=== PATIENT | female | born 1955 | race Asian ===

== ENCOUNTER 2017-11-28 00:51 | Inpatient (IN) | payer MEDICAID ==
[~2017-11-28] VITALS: Ht 160 cm; Wt 53.5 kg
--- NOTE | 2017-11-28 00:56 | NUR ---
PT TO ER BED 13. BIBRA 78 FOR "CHEST PAIN SINCE YESTERDAY AFTERNOON" +NV. PT STATES ITS A BURNING PAIN IN EPIGASTRIC AREA. PT PLACED IN GOWN AND ON HEARING AID MECHANIC. VSS/RESP EVEN UNLABORED/NAD NOTED/SKIN WARM AND DRY/AFEBRILE/AOX4. AWAITING MD CARNES.
[2017-11-28] MEDS ORDERED: ONDANSETRON HCL/PF 4 MG/2 ML VIAL ONE ×2 (01:10→03:25)
[2017-11-28] MEDS ORDERED: MORPHINE SULFATE INJ 4 MG/ML DISP.SYRIN ONE (01:10)
--- NOTE | 2017-11-28 01:10 | NUR ---
LAB AT BEDSIDE FOR DRAW.
[2017-11-28] MEDS ORDERED: CARB-93 PO (01:27)
[2017-11-28] MEDS ORDERED: [UNRECOGNIZED DRUG - CODE] PO (01:27)
[2017-11-28] MEDS ORDERED: FURO-144 PO (01:27)
[2017-11-28] MEDS ORDERED: DILT180C PO (01:27)
[2017-11-28] MEDS ORDERED: APIX5TAB PO (01:27)
[2017-11-28] MEDS ORDERED: METO50TA16 PO (01:27)
[2017-11-28] MEDS ORDERED: PRAM0.253 PO (01:27)
[2017-11-28 01:29] LABS: BASOPHILS % (AUTO) 0.1 % (0.0-2.0); EOSINOPHILS % (AUTO) 0.4 % (0.0-6.0); HEMATOCRIT 30 % (33-45); HEMOGLOBIN 10.4 g/dL (11.5-14.8); LYMPHOCYTES % (AUTO) 12.2 % (20.0-44.0); MEAN CORPUSCULAR HGB CONC 35 g/dl (31.0-36.0); MEAN CORPUSCULAR VOLUME 81 fL (82-100); MONOCYTES # (AUTO) 0.1 /CMM (0.1-1.30); MONOCYTES % (AUTO) 1.4 % (2.0-12.0); NEUTROPHILS # (AUTO) 6.9 /CMM (1.8-8.9); NEUTROPHILS % (AUTO) 85.9 % (43.0-81.0); PLATELET COUNT (AUTO) 437 /CMM (150-450); RDW COEFFICIENT OF VARIATION 14.4 (11.5-15.0); RED BLOOD CELL COUNT(AUTO) 3.72 MIL/uL (4.0-5.2); WHITE BLOOD COUNT (AUTO) 8.1 K/uL (4.3-11.0)
[2017-11-28] MEDS ORDERED: MORPHINE SULFATE INJ 2 MG/ML DISP.SYRIN IV ONE (01:30)
[2017-11-28] MEDS ORDERED: ONDANSETRON HCL/PF 4 MG/2 ML VIAL IVP ONE (01:30)
[2017-11-28 01:41] LABS: CALCIUM, SERUM 9.7 mg/dL (8.5-10.1); CARBON DIOXIDE 26 mmol/L (21-32); CHLORIDE 101 mmol/L (98-107); CREATININE 1.3 mg/dL (0.6-1.3); GLUCOSE 208 mg/dL (74-106); INR 1.52 (0.87-1.13); POTASSIUM 3.7 mmol/L (3.5-5.1); SODIUM SERUM 140 mmol/L (136-145); UREA NITROGEN, BLOOD 64 mg/dL (7-18)
[2017-11-28 01:55] LABS: ALANINE AMINOTRANSFERASE 9 U/L (12-78); ALBUMIN 3.1 g/dL (3.4-5.0); ALKALINE PHOSPHATASE 90 U/L (46-116); ASPARTATE AMINOTRANSFERASE 14 U/L (15-37); B-TYPE NATRIURETIC PEPTIDE 2933 PG/ML (0-125); BILIRUBIN,DIRECT 0.3 mg/dL (0.0-0.2); BILIRUBIN,TOTAL 0.7 mg/dL (0.2-1.0); TOTAL PROTEIN, SERUM 7.3 g/dL (6.4-8.2)
[2017-11-28] MEDS ORDERED: IOHEXOL-300 100 ML VIAL IV ONE (01:59)
[2017-11-28] MEDS ORDERED: CT SWABBABLE VALVE TRANS SET 1 EA INFUS.SET MC ONE (01:59)
[2017-11-28] MEDS ORDERED: IV NS 0.9% 500 ML IV ONE (01:59)
[2017-11-28] MEDS ORDERED: ASPIRIN 325 MG TABLET PO ONE (02:00)
[2017-11-28] MEDS ORDERED: ASPIRIN 325 MG TABLET ONE (02:00)
--- NOTE | 2017-11-28 02:06 | NUR ---
PT RESTING QUIETLY, VSS. AROUSES EASILY TO VOICE. RN TO CONTINUE MONITORING PROVIDING SAFETY/COMFORT MEASURES.
[2017-11-28 02:38] LABS: TROPONIN I < 0.017 ng/mL (0.00-0.056)
--- NOTE | 2017-11-28 03:15 | NUR ---
REPORT GIVEN TO ANN LEBLANC FOR JANETT.
--- NOTE | 2017-11-28 03:16 | NUR ---
PT TBA TELE 314-2.
[2017-11-28] MEDS ORDERED: ONDANSETRON HCL/PF 4 MG/2 ML VIAL IV ONE (03:30)
--- NOTE | 2017-11-28 03:42 | NUR ---
PT TRANSPORTED TO TELE 314.2 VIA STRETCHER ON MIXER PIGMENT WITH RN PER ACLS PROTOCOL. VSS.
[2017-11-28 04:00] VITALS: BP 166/77
--- NOTE | 2017-11-28 04:00 | NUR ---
LEAD MANUFACTURING TECHNICIAN NOTE RECEIVED PATIENT FROM ER VIA GURJYACE ACCOMPANIED WITH HER EX-, PATIENT IS ALERT AND ORIENTEDX4, NO S/S OF RESPIRATORY DISTRESS, NON-LABORED BREATHING, COMPLAINS OF NAUSEA AND PAIN ON HER EPIGASTRIC AREA. ZOFRAN GIVEN AT ER. IV ON RIGHT AC AND HAND ARE PATENT AND INTACT, SL. TELE SR 88. PATIENT HAS PRESSURE ULCER ON SACRUM, PICTURE TAKEN AND PUT IT IN THE CHART. SRX2, BED IN LOW POSITION, CALL LIGHT WITHIN REACH, WILL CONTINUE TO MONITOR THE PATIENT.
[2017-11-28] MEDS ORDERED: ZOLPIDEM TARTRATE 5 MG TABLET PO PRN (04:30)
[2017-11-28] MEDS ORDERED: DEXTROSE 50%-WATER 50 ML DISP.SYRIN IV PRN (04:30)
[2017-11-28] MEDS ORDERED: NITROGLYCERIN 0.4 MG/TAB BOTTLE SL PRN (04:30)
[2017-11-28] MEDS ORDERED: ACETAMINOPHEN 325 MG TABLET PO PRN (04:30)
[2017-11-28] MEDS ORDERED: ONDANSETRON HCL/PF 4 MG/2 ML VIAL IVP PRN (04:30)
[2017-11-28] MEDS ORDERED: MAGNESIUM HYDROXIDE 30 ML UDC PO PRN (04:30)
[2017-11-28] MEDS ORDERED: HYDROCODONE/APAP 5/325MG 1 EACH TABLET PO PRN (04:30)
[2017-11-28] MEDS: BLOOD SUGAR DIAGNOSTIC 1 EACH STRIP IN SCH ×5 (05:33→21:20)
[2017-11-28] MEDS: METOPROLOL TARTRATE 50 MG TABLET PO SCH ×4 (05:33→23:15)
[2017-11-28] MEDS: INSULIN REGULAR, HUMAN 100 UNIT/ML 3 ML VIAL SQ PRN ×4 (05:37→21:22)
--- NOTE | 2017-11-28 06:40 | NUR ---
PANELBOARD OPERATOR NOTE PATIENT IS RESTING IN BED COMFORTABLY, NO ACUTE DISTRESS NOTED SINCE ADMISSION. NO S/S OF RESPIRATORY DISTRESS OR PAIN REPORTED. WILL ENDORSE TO DAY SHIFT NURSE FOR JANETT.
--- NOTE | 2017-11-28 07:54 | NUR ---
SURGEON/PRESIDENT NOTES Patient awakre and verbally responsive. A&O x3 to self, time and situation. Patient received in bed comfortably with no apparent distress. Safety measures in place. Call light within reach. Will continue to monitor and assess patient.
[2017-11-28] MEDS: CARBIDOPA/LEVODOPA 25/100 MG 1 UDTAB PO SCH ×3 (08:17→16:40)
[2017-11-28] MEDS: PRAMIPEXOLE DI-HCL 0.25 MG TABLET PO SCH ×3 (08:17→16:40)
[2017-11-28] MEDS: DILTIAZEM HCL CD 180 MG PO SCH (08:22)
[2017-11-28] MEDS: FUROSEMIDE 40 MG/4 ML VIAL IV SCH (08:23)
[2017-11-28] MEDS: APIXABAN 5 MG TABLET PO SCH ×2 (08:50→17:00)
[2017-11-28] MEDS ORDERED: ASPIRIN 81 MG TAB.CHEW PO SCH (09:00)
[2017-11-28 09:55] LABS: IRON, SERUM 34 ug/dl (50-175); TOTAL IRON BINDING CAPACITY 204 ug/dl (250-450)
[2017-11-28] MEDS: DRONEDARONE HYDROCHLORIDE 400 MG TABLET PO SCH ×2 (09:56→16:40)
[2017-11-28 10:32] LABS: CHOLESTEROL 129 mg/dL (<200); FERRITIN 1419 ng/mL (8-388); HDL CHOLESTEROL 41 mg/dL (40-60); LDL 74 mg/dL (0-99); TRIGLYCERIDES 132 mg/dL (30-150)
[2017-11-28 11:03] LABS: THYROID STIMULATING HORMONE < 0.007 uIU/mL (0.358-3.74)
[2017-11-28 11:06] LABS: MAGNESIUM 1.7 mg/dL (1.8-2.4); PHOSPHORUS 5.3 mg/dL (2.5-4.9)
[2017-11-28 11:44] VITALS: BP 113/53
[2017-11-28] MEDS: PANTOPRAZOLE 40 MG VIAL IV SCH (14:43)
[2017-11-28] MEDS: Magnesium 1GM/D5W 100ML PREMIX 100 ML IV SCH ×2 (14:47→16:11)
--- NOTE | 2017-11-28 15:54 | NUR ---
PLACE PATIENT ON GLUCERNA PO FOR NUTRITIONAL SUPPLEMENT PER RD MERIAM RECOMMENDATION.
[2017-11-28 16:00] VITALS: BP 121/70
[2017-11-28] MEDS: MORPHINE SULFATE INJ 4 MG/ML DISP.SYRIN IV PRN (16:55)
--- NOTE | 2017-11-28 17:10 | NUR ---
EGD tomorrow, per Dr. Cristian BELLAIS. Charge Nurse is aware. Will endorse to oncoming RN
--- NOTE | 2017-11-28 17:31 | NUR ---
TROP 0.054 PATIENT C/O CRUSHING PAIN IN HER MID LOWER CHEST, MORPHINE 2MG IV PRN GIVEN, NOTIFIED DR. BARRAZA WITH CURRENT TROP RESULT WITH NO NEW ORDERS AT THIS TIME.
[2017-11-28] MEDS: Z GUARD REMEDY 2 OZ OINT TP PRN (18:24)
--- NOTE | 2017-11-28 18:50 | NUR ---
MID WIFE CLOSING NOTES Patient is asleep and comfortable, arouses easily. IV Site on Right AC 18g and Right Hand 22g: Patent and intact. No signs of infiltration noted. Magnesium supplement given today. No complaints of pain or no apparent distress noted. Olga HELD per Dr. Foster for EGD prep. NPO by midnight for EGD preparation. Patient consented procedure - EGD. Consent forms placed in chart. No SOB noted or reported. Safety measures in place. Call light within reach. Will endorse to oncoming nurse
[2017-11-28] MEDS: GLUCERNA SHAKE 237 ML CAN PO SCH (19:16)
--- NOTE | 2017-11-28 19:16 | NUR ---
Glucerna not administered. Dietary informed x3. Endorsed to night RN
--- NOTE | 2017-11-28 19:30 | NUR ---
HOUSING MANAGEMENT OFFICER OPENING NOTES: RECEIVED PT IN BED AND IS ASLEEP AT THIS TIME. FAMILY MEMBER AT BEDSIDE. PT ON ROOM AIR AND TOLERATING WELL. CALL LIGHT WITHIN PT'S REACH. BED KEPT IN LOW, LOCKED POSITION, AND SIDE RAILS X 2UP. PT HAS IV ON R AC AND R HAND IS PATENT AND INTACT. WILL CONTINUE TO MONITOR PT.
[2017-11-28 19:49] VITALS: BP 129/61
[2017-11-28 23:52] VITALS: BP 129/64
[2017-11-29 04:00] VITALS: BP 129/61
--- NOTE | 2017-11-29 04:37 | NUR ---
VISUALIZATION DEVELOPER NOTES: AT BEDSIDE AND CAME TO DROP OFF CELLPHONE.
[2017-11-29 04:41] VITALS: BP 129/61
[2017-11-29] MEDS: METOPROLOL TARTRATE 50 MG TABLET PO SCH ×4 (05:01→23:01)
--- NOTE | 2017-11-29 05:02 | NUR ---
CONFIGURATION MANAGEMENT SPECIALIST NOTES: LOPRESSOR 50MG WAS HELD D/T BEING NPO SINCE MIDNIGHT PT IS TO GO FOR EGD PROCEDURE TODAY.
[2017-11-29] MEDS: BLOOD SUGAR DIAGNOSTIC 1 EACH STRIP IN SCH ×4 (06:07→21:00)
[2017-11-29] MEDS: INSULIN REGULAR, HUMAN 100 UNIT/ML 3 ML VIAL SQ PRN ×4 (06:15→21:06)
--- NOTE | 2017-11-29 06:15 | NUR ---
POKER DEALER CLOSING NOTES: ALL NEEDS WERE ATTENDED AND ANTICIPATED FOR. PT ON ROOM AIR AND TOLERATING WELL. PT RESTING IN BED COMFORTABLY AT THIS TIME. PT HAS BEEN NPO SINCE MIDNIGHT. PT ON TELE BOX AND READING SHOWS SR 60S. PT HAS IV ON R AC #22G AND IS PATENT AND INTACT. PT ALSO HAS IV ON R HAND #18G AND IS PATENT AND INTACT. BOTH H/L AT THE MOMENT. BLOOD SUGAR THIS AM WAS 82. NO INSULIN WAS ADMINISTERED. CALL LIGHT WITHIN PT'S REACH. BED KEPT IN LOW, LOCKED POSITION, AND SIDE RAILS X 2UP. WILL ENDORSE TO AM NURSE FOR JANETT.
[2017-11-29 07:03] LABS: BASOPHILS % (AUTO) 0.3 % (0.0-2.0); HEMATOCRIT 30 % (33-45); HEMOGLOBIN 9.9 g/dL (11.5-14.8); LYMPHOCYTES # (AUTO) 1.4 /CMM (0.8-4.8); LYMPHOCYTES % (AUTO) 18.2 % (20.0-44.0); MEAN CORPUSCULAR HGB CONC 33 g/dl (31.0-36.0); MEAN CORPUSCULAR VOLUME 83 fL (82-100); MONOCYTES # (AUTO) 0.7 /CMM (0.1-1.30); MONOCYTES % (AUTO) 8.7 % (2.0-12.0); NEUTROPHILS # (AUTO) 5.5 /CMM (1.8-8.9); NEUTROPHILS % (AUTO) 71.8 % (43.0-81.0); PLATELET COUNT (AUTO) 391 /CMM (150-450); RDW COEFFICIENT OF VARIATION 14.8 (11.5-15.0); RED BLOOD CELL COUNT(AUTO) 3.64 MIL/uL (4.0-5.2); WHITE BLOOD COUNT (AUTO) 7.6 K/uL (4.3-11.0)
[2017-11-29 07:21] LABS: ALANINE AMINOTRANSFERASE 6 U/L (12-78); ALBUMIN 2.9 g/dL (3.4-5.0); ALKALINE PHOSPHATASE 82 U/L (46-116); ASPARTATE AMINOTRANSFERASE 22 U/L (15-37); BILIRUBIN,TOTAL 0.8 mg/dL (0.2-1.0); CALCIUM, SERUM 9.1 mg/dL (8.5-10.1); CARBON DIOXIDE 24 mmol/L (21-32); CHLORIDE 103 mmol/L (98-107); CREATININE 1.1 mg/dL (0.6-1.3); GLUCOSE 97 mg/dL (74-106); MAGNESIUM 2.7 mg/dL (1.8-2.4); PHOSPHORUS 3.8 mg/dL (2.5-4.9); POTASSIUM 3.5 mmol/L (3.5-5.1); SODIUM SERUM 139 mmol/L (136-145); TOTAL PROTEIN, SERUM 6.9 g/dL (6.4-8.2); UREA NITROGEN, BLOOD 48 mg/dL (7-18)
--- NOTE | 2017-11-29 07:30 | NUR ---
SYSTEMS TECHNICIAN NOTES PATIENT IS A/O X3, FORGETFUL. PATIENT IS CURRENTLY NPO, FOR EGD TODAY. IVC IN RIGHT AC G22, ANOTHER IVC IN RIGHT HAND G18, BOTH PATENT AND INTACT, FLUSHES WELL. DENIES PAIN, SAFETY MEASURES IN PLACE, CALL LIGHT WITHIN REACH. WILL CONT TO MONITOR.
[2017-11-29 07:40] LABS: TROPONIN I < 0.017 ng/mL (0.00-0.056)
[2017-11-29 08:00] VITALS: BP 122/58
--- NOTE | 2017-11-29 08:27 | NUR ---
PATIENT IS TAKEN TO OR VIA BED FOR PROCEDURE-EGD.
[2017-11-29] MEDS: DILTIAZEM HCL CD 180 MG PO SCH (09:00)
[2017-11-29] MEDS: DRONEDARONE HYDROCHLORIDE 400 MG TABLET PO SCH ×2 (09:00→17:09)
[2017-11-29] MEDS: APIXABAN 5 MG TABLET PO SCH ×2 (09:00→17:07)
[2017-11-29] MEDS: GLUCERNA SHAKE 237 ML CAN PO SCH ×3 (09:15→17:00)
--- NOTE | 2017-11-29 10:04 | NUR ---
PATIENT IS BACK TO THE UNIT, AWAKE, A/O X3. ADVANCED DIET TOLERATED AND RESUME MEDS AND OTHER ORDERS PER DR. CARBAJAL NOTED AND ACKNOWLEDGED. WILL CONT TO MONITOR PATIENT.
--- NOTE | 2017-11-29 10:14 | NUR ---
WOUND CARE CONSULT: PT PRESENTS WITH STAGE 2 ULCER TO SACRUM, PRESENT ON ADMISSION. SCARRING NOTED TO RT HEEL AREA. PT IS INCONTINENT. ALL SKIN PROTECTION AND WOUND CARE RECOMMENDATIONS DISCUSSED WITH NURSING STAFF. PT ON ISOFLEX LOW AIRLOSS BED. CURRENT BONY SCORE IS 15. WILL SEE PRN. CARRASCO IN AGREEMENT WITH PLAN OF CARE. Addendum: 11/29/17 at 1016 by NICOLE CASTANEDA WNDNU Amended: Links added.
[2017-11-29] MEDS: CARBIDOPA/LEVODOPA 25/100 MG 1 UDTAB PO SCH ×3 (10:19→17:07)
[2017-11-29] MEDS: PRAMIPEXOLE DI-HCL 0.25 MG TABLET PO SCH ×3 (10:20→17:07)
[2017-11-29] MEDS: FUROSEMIDE 40 MG/4 ML VIAL IV SCH (10:20)
[2017-11-29] MEDS ORDERED: HYDROGEL DRESSING 90 GM TUBE TP PRN (10:30)
[2017-11-29] MEDS: MORPHINE SULFATE INJ 4 MG/ML DISP.SYRIN IV PRN (11:36)
[2017-11-29] MEDS: METOCLOPRAMIDE HCL 10 MG/2 ML VIAL IV PRN (12:17)
[2017-11-29 13:05] LABS: CHOLESTEROL 135 mg/dL (<200); HDL CHOLESTEROL 49 mg/dL (40-60); LDL 79 mg/dL (0-99); TRIGLYCERIDES 212 mg/dL (30-150)
[2017-11-29] MEDS: PANTOPRAZOLE 40 MG VIAL IV SCH (13:49)
[2017-11-29] MEDS: HYDROGEL DRESSING 90 GM TUBE TP SCH (13:52)
--- NOTE | 2017-11-29 13:53 | NUR ---
HYDROGEL TO SACRAL WOUND ADMINISTERED NOT ON TIME, PHARMACY PROCESSED MEDICATIONS NOT ON TIME.
[2017-11-29 16:00] VITALS: BP 126/61
--- NOTE | 2017-11-29 18:21 | NUR ---
RN CLOSING NOTE: ALERT AND ORIENTED X 2/3. FORGETFUL. SP EGD TODAY. PUREE DIET TOLERATING WELL. POOR APPETITE. PROVIDED NUTRITION SUPPLEMENT FOR MALNUTRITION. SEEN BY WOUND NURSE TODAY. EVALUATED BY PT. CALL LIGHT WITHIN REACH. DENIES PAIN. BED LOCKED. SIDE RAILS UP X 2.
--- NOTE | 2017-11-29 19:20 | NUR ---
MS RN OPENING NOTES: RECEIVED PT IN BED AND IS ON SEMI-CAMPUZANO'S POSITION. NO S/S OF DISTRESS NOTED AT THIS TIME. PT ON ROOM AIR. FAMILY MEMBER AT BEDSIDE. PT ON SCD PUMPS. CALL LIGHT WITHIN PT'S REACH. IV REMAINS INTACT. CALL LIGHT WITHIN PT'S REACH. BED KEPT IN LOW, LOCKED POSITION, AND SIDE RAILS X 2UP. WILL CONTINUE TO MONITOR PT.
[2017-11-29 20:05] VITALS: BP 160/74
--- NOTE | 2017-11-29 21:11 | NUR ---
MS RN NOTES: BLOOD SUGAR WAS 181. 3 UNITS OF INSULIN WAS ADMINISTERED. SNACK PROVIDED. WILL CONTINUE TO MONITOR PT.
[2017-11-29 22:47] VITALS: BP 141/61
--- NOTE | 2017-11-29 23:57 | NUR ---
MS RN NOTES: PT COMPLAINING OF CHEST/ABDOMEN PRESSURE 7/10. PT DOES NOT WANT THE MORPHINE. PT WANTED NORCO 5. ADMINISTERED NORCO 5. EXPLAINED TO PT THAT IF THE PRESSURE DOES NOT SUBSIDE, MORPHINE WILL BE ANOTHER ALTERNATIVE. WILL CONTINUE TO MONITOR.
[2017-11-30 00:27] VITALS: BP 140/67
[2017-11-30] MEDS: MORPHINE SULFATE INJ 4 MG/ML DISP.SYRIN IV PRN (00:29)
--- NOTE | 2017-11-30 00:31 | NUR ---
MS RN NOTES: PT STILL COMPLAINING OF CHEST PRESSURE/ABDOMINAL PAIN 02/18 . NORCO 5 WAS GIVEN 30 MINUTES AGO AND PT SAID PAIN HAS NOT SUBSIDED. PT WAS ADMINISTERED MORPHINE 2MG IV. WILL CONTINUE TO MONITOR.
[2017-11-30 05:09] LABS: *SPE A/G RATIO 0.9 (0.7-1.7); *SPE ALBUMIN 3.2 g/dL (2.9-4.4); *SPE ALPHA-1-GLOBULIN 0.4 g/dL (0.0-0.4); *SPE ALPHA-2-GLOBULIN 0.8 g/dL (0.4-1.0); *SPE GLOBULIN, TOTAL 3.4 g/dL (2.2-3.9); *SPE M-SPIKE Not Observed g/dL (Not Observed); *SPEGAMMA GLOBULIN 1.2 g/dL (0.4-1.8)
[2017-11-30] MEDS: BLOOD SUGAR DIAGNOSTIC 1 EACH STRIP IN SCH ×4 (06:07→21:46)
[2017-11-30] MEDS: METOPROLOL TARTRATE 50 MG TABLET PO SCH ×3 (06:07→17:40)
[2017-11-30] MEDS: METOCLOPRAMIDE HCL 10 MG/2 ML VIAL IV PRN (06:07)
[2017-11-30] MEDS: INSULIN REGULAR, HUMAN 100 UNIT/ML 3 ML VIAL SQ PRN ×3 (06:14→17:38)
--- NOTE | 2017-11-30 07:23 | NUR ---
MS RN CLOSING NOTES: ALL NEEDS WERE ATTENDED AND ANTICIPATED FOR. PT KEPT CLEAN, DRY, AND COMFORTABLE. PT ON ROOM AIR AND TOLERATING WELL. PT HAS 2 IVS AND IS PATENT AND INTACT. CURRENTLY S/L. NO INSULIN ADMINISTERED THIS AM BLOOD SUGAR WAS 76. PT ON SCD PUMPS. CALL LIGHT WITHIN PT'S REACH. BED KEPT IN LOW, LOCKED POSITION, AND SIDE RAILS X 2UP. ENDORSED TO AM NURSE FOR JANETT.
[2017-11-30 07:27] LABS: BASOPHILS % (AUTO) 0.2 % (0.0-2.0); EOSINOPHILS % (AUTO) 0.6 % (0.0-6.0); HEMATOCRIT 27 % (33-45); HEMOGLOBIN 9.3 g/dL (11.5-14.8); LYMPHOCYTES # (AUTO) 2.1 /CMM (0.8-4.8); LYMPHOCYTES % (AUTO) 26.4 % (20.0-44.0); MEAN CORPUSCULAR HGB CONC 34 g/dl (31.0-36.0); MEAN CORPUSCULAR VOLUME 82 fL (82-100); MONOCYTES # (AUTO) 0.7 /CMM (0.1-1.30); MONOCYTES % (AUTO) 8.5 % (2.0-12.0); NEUTROPHILS # (AUTO) 5.2 /CMM (1.8-8.9); NEUTROPHILS % (AUTO) 64.3 % (43.0-81.0); PLATELET COUNT (AUTO) 394 /CMM (150-450); RDW COEFFICIENT OF VARIATION 14.5 (11.5-15.0); RED BLOOD CELL COUNT(AUTO) 3.34 MIL/uL (4.0-5.2)
[2017-11-30 07:33] LABS: CREATININE 1.1 mg/dL (0.6-1.3); MAGNESIUM 1.9 mg/dL (1.8-2.4); PHOSPHORUS 3.7 mg/dL (2.5-4.9); POTASSIUM 3.4 mmol/L (3.5-5.1)
--- NOTE | 2017-11-30 07:45 | NUR ---
VICE PRESIDENT INVESTOR RELATIONS INITIAL NOTES Patient received awake and verbally responsive. No complaints of pain or discomfort. IV site on R ac and R hand: patent and intact. Safety measures in place. Bed in lowest position with call light within reach. Advised patient to use call light if assistance needed.
[2017-11-30 08:00] VITALS: BP 146/71
[2017-11-30] MEDS: GLUCERNA SHAKE 237 ML CAN PO SCH ×3 (08:14→16:28)
[2017-11-30] MEDS: PRAMIPEXOLE DI-HCL 0.25 MG TABLET PO SCH ×3 (09:07→16:24)
[2017-11-30] MEDS: FUROSEMIDE 40 MG/4 ML VIAL IV SCH (09:07)
[2017-11-30] MEDS: CARBIDOPA/LEVODOPA 25/100 MG 1 UDTAB PO SCH ×3 (09:07→16:23)
[2017-11-30] MEDS: DILTIAZEM HCL CD 180 MG PO SCH (09:08)
[2017-11-30] MEDS: DRONEDARONE HYDROCHLORIDE 400 MG TABLET PO SCH ×2 (09:11→16:24)
[2017-11-30] MEDS: APIXABAN 5 MG TABLET PO SCH ×2 (09:11→16:23)
[2017-11-30] MEDS: Z GUARD REMEDY 2 OZ OINT TP PRN (09:16)
[2017-11-30] MEDS: HYDROGEL DRESSING 90 GM TUBE TP SCH (09:19)
[2017-11-30] MEDS ORDERED: POTASSIUM CHLORIDE 10 MEQ TABLET.SA PO ONE (10:30)
[2017-11-30] MEDS: PANTOPRAZOLE 40 MG VIAL IV SCH (14:25)
[2017-11-30 16:00] VITALS: BP 100/56
--- NOTE | 2017-11-30 19:15 | NUR ---
MS RN CLOSING NOTES Patient remained stable during shift. IV on Right ac and right hand: patent and intact. No complaints of nausea/vomiting. NO complaints of pain or discomfort. No SOB noted or reported. Psych eval ordered. Potassium supplement ordered and given. Skin care provided. Patient comfortable with family member at bedside. Safety measures in place. Call light within reach. Bed alarm on. Endorsed to oncoming RN
--- NOTE | 2017-11-30 19:36 | NUR ---
RN NOTES RECEIVED PT SITTING IN BED, EATING DINNER WITH FAIR APPETITE. PT ALERT AND ORIENTED X3, APPEARS ANXIOUS. DENIES PAIN, NAUSEA AND VOMITING. IV ACCESS ON RIGHT AC AND RIGHT HAND PATENT AND INTACT. PLAN OF CARE DISCUSSED WITH THE PT AND AT BEDSIDE AND VERBALIZED UNDERSTANDING.SAFETY MEASURES AND FALL PRECAUTION OBSERVED. WILL CONTINUE TO MONITOR PT.
[2017-11-30 20:00] VITALS: BP 100/57
[2017-11-30 22:00] VITALS: BP 100/57
[2017-12-01] MEDS: METOPROLOL TARTRATE 50 MG TABLET PO SCH ×4 (06:00→18:00)
[2017-12-01] MEDS: BLOOD SUGAR DIAGNOSTIC 1 EACH STRIP IN SCH ×4 (06:27→21:51)
--- NOTE | 2017-12-01 07:10 | NUR ---
RN NOTES PT STABLE OVERNIGHT, BP AT LOW SIDE, BP MEDS HELD, AFEBRILE. BLOOD SUGAR CONTROLLED. PT DENIES PAIN, NAUSEA AND VOMITING. ON ROOM AIR AND TOLERATED WELL, NO SIGNS OF DISTRESS AND DISCOMFORT NOTED. WOUND CARE DONE. KEPT PT CLEAN AND DRY. TURNED AND REPOSITION PER PROTOCOL. FALL PRECAUTION OBSERVED. WILL ENDORSE TO MORNING RN FOR CONTINUITY OF CARE.
--- NOTE | 2017-12-01 07:18 | NUR ---
MS RN OPENING NOTES PT RECEIVED IN BED AWAKE, ALERT AND ORIENTED X3. VERBALLY RESPONSIVE WITH NO C/O PAIN OR DISCOMFORTS VOICED AT THIS TIME. ON ROOM AIR, BREATHING EVEN AND UNLABORED, NO SIGNS OF DISTRESS NOTED. IV ACCESS ON RIGHT AC INTACT AND PATENT. ALL SAFETY MEASURES IN PLACE. HOB ELEVATED. BED IN LOW/LOCKED POSITION WITH SIDE-RAILS UP X2. CALL LIGHT WITHIN REACH. WILL CONTINUE TO MONITOR PT ACCORDINGLY.
[2017-12-01] MEDS: GLUCERNA SHAKE 237 ML CAN PO SCH ×3 (07:59→17:05)
[2017-12-01 08:00] VITALS: BP 130/66
[2017-12-01] MEDS: DILTIAZEM HCL CD 180 MG PO SCH (08:11)
[2017-12-01] MEDS: PRAMIPEXOLE DI-HCL 0.25 MG TABLET PO SCH ×3 (08:11→17:04)
[2017-12-01] MEDS: DRONEDARONE HYDROCHLORIDE 400 MG TABLET PO SCH ×2 (08:11→17:04)
[2017-12-01] MEDS: CARBIDOPA/LEVODOPA 25/100 MG 1 UDTAB PO SCH ×3 (08:11→17:04)
[2017-12-01] MEDS: HYDROGEL DRESSING 90 GM TUBE TP SCH (08:12)
[2017-12-01] MEDS: APIXABAN 5 MG TABLET PO SCH ×2 (08:12→17:04)
--- NOTE | 2017-12-01 09:55 | NUR ---
RN NOTES PATIENT SEEN BY JJ LICEA ST. PATIENT REQUESTED TO STAY ON PUREED CONSISTENCY DIET. NO ASPIRATION NOTED. WILL CONTINUE TO MONITOR
[2017-12-01] MEDS: INSULIN REGULAR, HUMAN 100 UNIT/ML 3 ML VIAL SQ PRN ×2 (11:51→17:41)
[2017-12-01] MEDS: PANTOPRAZOLE 40 MG VIAL IV SCH (13:27)
[2017-12-01 16:00] VITALS: BP 95/50
--- NOTE | 2017-12-01 16:45 | NUR ---
RN NOTES PT FOR DISCHARGE TODAY [facility], CALLED AND REPORT GIVEN TO DEBORA, NURSE MIRROR INSPECTOR. PT'S SISTER EMMY FIORE INFORMED CALLED AND INFORMED THAT PT WILL BE DISCHARGE TONIGHT.
[2017-12-01] MEDS ORDERED: PANT20TA2 PO (17:04)
[2017-12-01] MEDS ORDERED: MIRT15TA PO (17:04)
--- NOTE | 2017-12-01 18:17 | NUR ---
MS RN CLOSING NOTES PT RESTING IN BED WITH FAMILY AT BEDSIDE. A/O X3. ABLE TO VERBALIZED NEEDS AND CONCERNS. ON ROOM AIR, BREATHING EVEN WITH NO ACUTE RESPIRATORY DISTRESS NOTED. IV LINES ON RIGHT AC AND RIGHT HAND BOTH INTACT AND PATENT. ALL SAFETY MEASURES KEPT IN PLACE. HOB ELEVATED. BED IN LOW/LOCKED POSITION WITH SIDE-RAILS UP X2. CALL LIGHT WITHIN REACH. ALL NEEDS AND CARE ATTENDED WELL. PT FOR DISCHARGE TO [facility], PICK-UP TIME IS 1930. PT AND FAMILY AWARE. WILL ENDORSE TO INCOMING NIGHT NURSE.
[2017-12-01 18:46] LABS: OCCULT BLOOD STOOL POSITIVE (NEGATIVE)
--- NOTE | 2017-12-01 19:15 | NUR ---
MS RN NOTES RECEIVED PT IN BED, A/O X 3, VERBALLY RESPONSIVE. NO DISTRESS, NO SOB NOTED. RESPIRATION IS EVEN AND UNLABORED. AND MOTHER AT BEDSIDE. IV SITE ON RAC AND RIGHT HAND INTACT AND PATENT, NO S/S OF INFILTRATION NOTED. NO C/O PAIN ORT DISCOMFORT AT THIS TIME. SAFETY PRECAUTION OBSERVED. ALL NEEDS ATTENDED AND MET. KEPT CLEAN, DRY AND COMFORTABLE. CALL LIGHT WITHIN REACH. WILL CONT TO MONITOR.
--- NOTE | 2017-12-01 19:39 | NUR ---
PT C/O DIZZINESS AND WEAKNESS , BP ON LEFT ARM: 85/35, HR : 42, RIGHT ARM : 87/53, HR : 42. PT FOR DISCHARGE TONIGHT RECEPTIONIST TELEPHONE OPERATOR TIME , SUPPOSED TO BE @ 1930, DC SUMMARY AND EXIT CARE DONE BY DAY SHIFT RN, PT AND FAMILY AWARE, PLACED A CALL TO DR. CROWLEY, REGARDING PT'S BP AND HR, AND REGARDING PT'S CONDITION PER DR. CROWLEY TO HOLD THE DISCHARGE TONIGHT AND GIVE NS 1 L BOLUS , NOTED AND CARRIED OUT, INFORMED DR. CROWLEY THAT PT HAS CHF. WILL MONITOR PT CLOSELY.
--- NOTE | 2017-12-01 19:49 | NUR ---
PLACED A CALL TO [facility] AND SPOKE WITH RAIN , INFORMED HER THAT PT IS NOT GONNA BE DISCHARGE TONIGHT, PER 'S ORDER. PER RAIN SHE'LL CANCEL THE TRANSPORTATION.
--- NOTE | 2017-12-01 19:50 | NUR ---
PLACED A CALL TO [facility] AND SPOKE WITH ANN CAZARES INFORMED HER THAT THE PT WILL NOT BE DISCHARGED TONIGHT.
[2017-12-01 20:00] VITALS: BP_SYST 87; BP_SYST 93; BP_DIAS 39; BP_DIAS 53
[2017-12-01] MEDS ORDERED: MIRTAZAPINE 15 MG TABLET PO SCH (20:00)
[2017-12-01] MEDS ORDERED: IV NS 0.9% 1,000 ML IV ONE (20:00)
--- NOTE | 2017-12-01 20:28 | NUR ---
PT C/O CHEST PAIN, 03/21, UNABLE TO DESCRIBE HOW THE PAIN IS LIKE. PT'S BP : 90/45 HR : 43 AT THIS TIME, EKG STAT ORDERED. WILL MONITOR PT CLOSELY.
--- NOTE | 2017-12-01 21:00 | NUR ---
PT C/O CONTINUOUS CHEST PAIN, /, UNABLE TO DESCRIBE HOW THE PAIN IS LIKE. PT'S BP : 90/45 HR : 43 AT THIS TIME, EKG STAT ORDERED. WILL MONITOR PT CLOSELY.
--- NOTE | 2017-12-01 21:05 | NUR ---
PLACED A CALL TO [facility] , AWAITING FOR MD'S CALL BACK.
--- NOTE | 2017-12-01 21:15 | NUR ---
PT STILL C/O CHEST PAIN , POINTING ON LEFT SIDE OF THE CHEST 02/18, UNABLE TO DESCRIBE THE CHARACTERISTIC OF THE PAIN, UNABLE TO GIVE NITROGLYCERIN D/T PT'S BP : 96/45, HR : 43 AT THIS TIME, PT ALREADY PLACED ON 02 @ 3LPM VIA BS : 129, NO S/S OF HYPO/ HYPERGLYCEMIA , PT REMAINS A/ O X 3. VERBALLY RESPONSIVE. PLACED A CALL TO DR. MARTINS AND INFORMED PT'S CONDITION, WITH ORDER TO TRANSFER PT TO TELE.
--- NOTE | 2017-12-01 21:20 | NUR ---
REPORT GIVEN TO MAUREEN KEENE RN PT IS GOING TO ROOM 328-2.
--- NOTE | 2017-12-01 21:31 | NUR ---
PT REFUSED REMERON, PER PT SHE WANTED TO WAIT UNTIL SHE FEELS BETTER, RISK AND BENEFITS EXPLAINED PT IS A/O X 3, PT STILL REFUSED X 3. FAMILY AT BEDSIDE.
--- NOTE | 2017-12-01 22:30 | NUR ---
TRANSFERRED PT TO ROOM 328-2 VIA ACLS PROTOCOL, PT REMAINS A/O X 3 VERBALLY RESPONSIVE, FAMILY MEMBERS TILL WITH THE PT AND VERY APPRECIATIVE. ENDORSED TO ANN WILSON ACCORDINGLY, BELONGINGS SENT WITH THE PT. PT'S INSULIN AND MEDICATION GIVEN TO ANN WILSON .
--- NOTE | 2017-12-01 22:31 | NUR ---
RECEIVED PATIENT AWAKE, AO X 3, ABLE TO MAKE NEEDS KNOWN. NO ACUTE DISTRESS NOTED. MONITORED FOR PAIN. TELE READING JUNCTIONAL HR 45. IV SITES PATENT, INTACT; FLUSHED. SAFETY REMINDERS GIVEN. ON LOW BED WITH BILATERAL UPPER SIDE RAILS UP. CALL DALTON WITHIN EASY REACH. WILL CONTINUE TO MONITOR. FAMILY MEMBER AT BEDSIDE.
[2017-12-01 22:35] VITALS: BP 119/47
[2017-12-01 22:45] VITALS: BP 119/47
[2017-12-02] VITALS (7 sets, daily range): BP systolic 114–136; BP diastolic 43–68
[2017-12-02] MEDS: METOPROLOL TARTRATE 50 MG TABLET PO SCH ×4 (06:00→17:19)
--- NOTE | 2017-12-02 06:18 | NUR ---
PATIENT ASLEEP, EASILY AROUSABLE. RESPIRATIONS EVEN. NO SIGNS OF PAIN NOTED. NEEDS ATTENDED. KEPT CLEAN, DRY, AND COMFORTABLE. SAFETY PRECAUTIONS AND COMFORT MEASURES IN PLACE. WILL GIVE REPORT TO DAY SHIFT FOR CONTINUITY OF CARE.
[2017-12-02] MEDS: BLOOD SUGAR DIAGNOSTIC 1 EACH STRIP IN SCH ×3 (06:32→17:42)
--- NOTE | 2017-12-02 07:45 | NUR ---
MANAGER LOCAL NOTES Patient received in bed, awake and verbally responsive. Tele monitor reading of Sinus Leonid HR 49. IV site on Right AC 22g and Right hand 18g: patent and intact. Mother at bedside. Safety measures in place. Call light within reach with bed alarm on. Bed in lowest position. Will continue to monitor and assess patient
[2017-12-02] MEDS: METOCLOPRAMIDE HCL 10 MG/2 ML VIAL IV PRN (08:03)
[2017-12-02] MEDS: GLUCERNA SHAKE 237 ML CAN PO SCH ×3 (08:04→16:14)
[2017-12-02] MEDS: DRONEDARONE HYDROCHLORIDE 400 MG TABLET PO SCH ×2 (08:07→16:11)
[2017-12-02] MEDS: APIXABAN 5 MG TABLET PO SCH ×2 (08:08→16:11)
[2017-12-02] MEDS: CARBIDOPA/LEVODOPA 25/100 MG 1 UDTAB PO SCH ×3 (08:09→16:11)
[2017-12-02] MEDS: PRAMIPEXOLE DI-HCL 0.25 MG TABLET PO SCH ×3 (08:09→16:11)
[2017-12-02] MEDS: HYDROGEL DRESSING 90 GM TUBE TP SCH (08:11)
[2017-12-02] MEDS ORDERED: DILTIAZEM HCL CD 120 MG PO SCH (09:00)
[2017-12-02] MEDS: DILTIAZEM HCL 30 MG TABLET PO SCH ×2 (12:00→17:18)
[2017-12-02] MEDS: INSULIN REGULAR, HUMAN 100 UNIT/ML 3 ML VIAL SQ PRN ×2 (12:00→17:45)
[2017-12-02] MEDS ORDERED: IOHEXOL-350 100 ML VIAL IV ONE (13:00)
[2017-12-02] MEDS ORDERED: CT SWABBABLE VALVE TRANS SET 1 EA INFUS.SET MC ONE (13:00)
[2017-12-02] MEDS ORDERED: IV NS 0.9% 500 ML IV ONE (13:00)
[2017-12-02] MEDS: PANTOPRAZOLE 40 MG VIAL IV SCH (14:00)
--- NOTE | 2017-12-02 14:00 | NUR ---
Tele/RN - Notes Patient taken to radiology for CT coronary angio.
--- NOTE | 2017-12-02 16:00 | NUR ---
Tele/RN - Notes Called Augusto Mendoza to give report, reviewed discharge instructions with ANN Trammell and she verbalized full understanding and all questions answered to her satisfaction. Ambulance ETA around 18:30 per clinical case manager.
--- NOTE | 2017-12-02 18:15 | NUR ---
Tele/RN - Notes Ambulance called and ETA delayed to 19:30 due to emergency. Family at bedside notified.
--- NOTE | 2017-12-02 19:02 | NUR ---
Tele/RN - Notes Patient feeling better, A/O x 3, stable to be discharged back to [facility] tonight. All belongings with the patient and she denies any missing items. VSS, denies chest pain, afebrile, no c/o SOB, tolerating room air, no apparent distress seen. No fall/injury during hospital stay. Heplock removed on the RAC and right hand both catheter tip intact, no redness and no swelling noted at the site. Photos taken on all skin breakdown. Discharge papers signed by the patient. Will endorse to the night nurse for completion of discharge.
--- NOTE | 2017-12-02 19:10 | NUR ---
MS/UI SOFTWARE DEVELOPER; RECEIVED PT'S REPORTS FROM THE DAY SHIFT RN FOR PT READY TO BE DC. ALL DC PAPERS WERE ALL SIGNED AND GIVEN BY THE DAY SHIFT R. NO MORE HL. AWAITING FOR AMBULANCE FOR LIBRARIAN SPECIAL LIBRARY.
--- NOTE | 2017-12-02 19:50 | NUR ---
MS/CREDIT RISK MODELER; AMBULANCE CAME TO SHIRRING MACHINE OPERATOR AUTOMATIC PT FOR DC . PT GOING TO [facility] PER REPORT. REPORTS AND ALL DC PAPERS WERE GIVEN TO ONE OF THE AMBULANCE MEN DACIA GUTIERREZ.
--- NOTE | 2017-12-02 20:10 | NUR ---
MS/FIBROUS WALLBOARD INSPECTOR; PT WAS DC VIA AMBULANCE AND REPORTS AND ALL DC PAPERS WERE GIVEN TO ONE OF THE AMBULANCE MEN DACIA GUTIERREZ. BELONGINGS WAS SENT ALSO.
--- NOTE | 2017-12-02 20:10 | NUR ---
MS/STATION OPERATOR; PT DC VIA AMBULANCE ACCOMPANIED BY FAMILY MEMBERS ALSO WITH PT BELONGINGS.
[2018-01-18] MEDS ORDERED: METH10TA7 PO (08:26)
[2018-01-18] MEDS ORDERED: METO100T14 PO (08:26)
[2018-01-18] MEDS ORDERED: ZOLP5TAB8 PO (08:26)
[2018-01-18] MEDS ORDERED: AMIN30LI2 PO (08:26)
[2018-01-18] MEDS ORDERED: ASPI-1152 PO (08:26)
== END 2017-12-02 20:05 | DRG 241 ==
LOC: ER 00:56 → TELE 03:34 → MED 11-29 09:22 → MEDSG2 11-30 19:45 → TELE 12-01 22:46 → MED 12-02 16:50
PROVIDERS: ADMIT Nurse Practitioner Acute Care; ATTEND Nurse Practitioner Acute Care
PROC: 0DB68ZX Excision of Stomach, Via Natural or Artificial Opening Endoscopic, Diagnostic (ICD-10-PCS; principal; 2017-11-29 09:20)
DX: K29.00 Acute gastritis without bleeding (principal); I21.A1 Myocardial infarction type 2; I50.33 Acute on chronic diastolic (congestive) heart failure; L89.152 Pressure ulcer of sacral region, stage 2; N17.9 Acute kidney failure, unspecified; R53.2 Functional quadriplegia; E11.22 Type 2 diabetes mellitus with diabetic chronic kidney disease; N18.3 Chronic kidney disease, stage 3 (moderate); I13.0 Hypertensive heart and chronic kidney disease with heart failure and stage 1 through stage 4 chronic kidney disease, or unspecified chronic kidney disease; G20 Parkinson's disease; F32.2 Major depressive disorder, single episode, severe without psychotic features; I48.0 Paroxysmal atrial fibrillation; K76.0 Fatty (change of) liver, not elsewhere classified; F41.9 Anxiety disorder, unspecified; K31.7 Polyp of stomach and duodenum; K21.9 Gastro-esophageal reflux disease without esophagitis; M10.9 Gout, unspecified; D50.9 Iron deficiency anemia, unspecified; E05.90 Thyrotoxicosis, unspecified without thyrotoxic crisis or storm; D63.8 Anemia in other chronic diseases classified elsewhere; R53.1 Weakness; I25.2 Old myocardial infarction; E87.6 Hypokalemia; R63.4 Abnormal weight loss; Z68.20 Body mass index [BMI] 20.0-20.9, adult
CPT/HCPCS: 36415; 71045-TC; 75574; 76705-TC; 80048-TC; 80053-TC; 80061-TC; 80076-TC; 82272-TC; 82306; 82728-TC; 82962-TC; 83540-TC; 83735-TC; 83880; 84100-TC; 84155; 84165; 84439-TC; 84443-TC; 84484-TC; 85025-TC; 85652-TC; 85730-TC; 87081-TC; 88305-TC; 88313-TC; 88342; 92611-TC; 93307-TC; 97110-TC; 97530-TC; A4606; A6248; C9113; J1815; J1940; J2270; J2405; J2704; J2765; J3475; J7030; J7040; Q9967; Z7610